=== PATIENT | female | born 1955 ===

== ENCOUNTER → 2024-08-13 | Outpatient (CLI) | payer MEDICARE, OTHER | END | disposition home or self-care (01) | LOC: MRI 02:35 | PROVIDERS: ATTEND Orthopaedic Surgery Sports Medicine | DX: M84.375A Stress fracture, left foot, initial encounter for fracture (principal); M72.2 Plantar fascial fibromatosis; M25.572 Pain in left ankle and joints of left foot; R93.7 Abnormal findings on diagnostic imaging of other parts of musculoskeletal system ==